=== PATIENT | female | born 1945 | race Caucasian/White ===

== ENCOUNTER 2024-11-07 14:40 | Emergency (ER) | payer MEDICARE, OTHER ==
[2024-11-07 15:45] LABS: BASOPHILS ABSOLUTE AUTO 0.02 K/uL (0.00-0.20); BASOPHILS PERCENT AUTO 0.2 % (0.0-2.0); HEMATOCRIT 37.2 % (34.0-46.0); HEMOGLOBIN 12.3 g/dL (11.7-15.5); IMMATURE GRAN ABSOLUTE AUTO 0.04 10^3/uL (0.00-0.04); IMMATURE GRAN PERCENT AUTO 0.4 % (0.0-0.4); LYMPHOCYTES PERCENT AUTO 3.7 % (10.0-50.0); MEAN CORPUSCULAR HGB CONC 33.1 g/dL (31.7-36.0); MEAN CORPUSCULAR VOLUME 93.7 fL (84.0-98.0); MONOCYTES ABSOLUTE AUTO 0.64 K/uL (0.00-1.00); MONOCYTES PERCENT AUTO 5.9 % (2.0-14.0); NEUTROPHILS ABSOLUTE AUTO 9.82 K/uL (1.40-7.00); NEUTROPHILS PERCENT AUTO 89.8 % (45.0-80.0); PLATELET COUNT,PLT 121 K/uL (150-350); RED BLOOD CELL COUNT 3.97 M/uL (3.77-5.09); RED CELL DISTRIBUTION WIDTH 12.8 % (11.2-14.1); WHITE BLOOD CELL COUNT,WBC 10.9 K/uL (4.0-10.2)
[2024-11-07 16:03] LABS: APPEARANCE,URINE SLIGHTLY CLOUDY; BILIRUBIN,URINE NEGATIVE (NEGATIVE); COLOR,URINE YELLOW; GLUCOSE,URINE NEGATIVE (NEGATIVE); KETONES,URINE NEGATIVE (NEGATIVE); LEUKOCYTE ESTERASE,URINE SMALL (NEGATIVE); NITRITE,URINE NEGATIVE (NEGATIVE); OCCULT BLOOD,URINE LARGE (NEGATIVE); PH,URINE 7.5 (5.0-9.0); PROTEIN,URINE 30 mg/dL (NEGATIVE)
[2024-11-07 16:07] LABS: ALANINE AMINOTRANSFERASE,ALT 20 U/L (12-78); ALBUMIN 3.9 g/dL (3.4-5.0); ALKALINE PHOSPHATASE 70 IU/L (46-116); ANION GAP 10.1 meq/L (7-15); ASPARTATE AMNIOTRANSFERASE,AST 15 U/L (15-37); BILIRUBIN TOTAL 0.8 mg/dL (0.2-1.0); BLOOD UREA NITROGEN,BUN 20 mg/dL (7-18); CALCIUM 9.2 mg/dL (8.5-10.1); CARBON DIOXIDE,CO2 27.9 mmol/L (21.0-32.0); CHLORIDE,CL 101 mmol/L (98-107); CREATININE 0.88 mg/dL (0.51-1.17); GLUCOSE RANDOM 130 mg/dL (70-99); POTASSIUM,K 4.2 mmol/L (3.5-5.1); PROTEIN TOTAL,TP 6.7 g/dL (6.4-8.2); SODIUM,NA 139 mmol/L (136-145)
[2024-11-07 16:09] LABS: ESTIMATED GFR 66 mL/min (>=60)
[2024-11-07 16:26] LABS: BACTERIA,URINE MODERATE /HPF (NONE TO FEW); EPITHELIAL CELLS,URINE FEW /LPF; RBC,URINE >100 /HPF; WBC,URINE 75-100 /HPF
[2024-11-07] MEDS: Ondansetron 4 MG Tab.DIS PO ONE (16:31)
[2024-11-07] MEDS: Levofloxacin 500 MG Tab PO ONE (17:54)
[2024-11-07] MEDS: Take Home: Ondansetron 4 MG Tab.DIS, 5 Tab Pack PO ONE (17:54)
[2024-11-07] MEDS: Ertapenem 1 GM Vial IM ONE (17:54)
[2024-11-07] MEDS: Lidocaine 1% 5 ML VIAL ONE (17:56)
[2024-11-07] MEDS: Lidocaine 1% 5 ML VIAL INJECT ONE (17:57)
[2024-11-07] MEDS: Ketorolac 30 MG/ML SDV IM ONE (17:58)
== END 2024-11-07 18:25 | disposition home or self-care (01) ==
LOC: LL.ED 14:40
DX: N39.0 Urinary tract infection, site not specified (principal); R11.2 Nausea with vomiting, unspecified; Z90.710 Acquired absence of both cervix and uterus; Z96.659 Presence of unspecified artificial knee joint; Z87.891 Personal history of nicotine dependence; Z79.899 Other long term (current) drug therapy
CPT/HCPCS: 36415; 80053; 81001; 85025; 87086; 87088; 87186; 96372; 99284; A9270-GY; J1335; J1885; J3490; Q0162